=== PATIENT | male | born 1985 | race Hispanic/Latino ===

== ENCOUNTER 2023-04-05 09:38 | Emergency (ER) | payer SELFPAY ==
[2023-04-05] VITALS (7 sets, daily range): BP systolic 119–137; BP diastolic 84–95
[~2023-04-05] VITALS: Ht 175.3 cm; Wt 99.7 kg
[2023-04-05] MEDS ORDERED: NAPROXEN500 MG PO (11:11)
== END 2023-04-05 11:19 | disposition home or self-care (01) | DRG 556 ==
LOC: ED 09:38
DX: M79.641 Pain in right hand (principal)